=== PATIENT | male | born 1990 | race Caucasian/White ===

== ENCOUNTER 2016-12-14 19:45 | Emergency (ER) | payer OTHER | END 2016-12-14 22:53 | disposition home or self-care (01) | LOC: D.ER 19:45 | DX: M54.9 Dorsalgia, unspecified (principal); S29.012A Strain of muscle and tendon of back wall of thorax, initial encounter; X58.XXXA Exposure to other specified factors, initial encounter; Y93.89 Activity, other specified; Y92.89 Other specified places as the place of occurrence of the external cause; M62.830 Muscle spasm of back ==